=== PATIENT | female | born 1980 | race African-American/Black ===

== ENCOUNTER → 2019-11-25 | Outpatient (CLI) | payer BC, OTHER ==
--- NOTE | 2019-11-25 18:55 | RADIOLOGY REPORT (SQ) ---
EXAM DESCRIPTION: VENOUS UNILATERAL LOWER IMAGES COMPLETED DATE/TIME: 11/25/2019 6:23 pm REASON FOR STUDY: LLEV PAIN M79.609 PAIN IN UNSPECIFIED LIMB M79.89 OTHER SPECIFIED SOFT TISSUE DI SORDERS COMPARISON: None. TECHNIQUE: Dynamic and static le scale and color images acquired of the left leg venous system. Se lected spectral images acquired with additional compression and augmentation maneuvers. The contralat eral common femoral vein and saphenofemoral junction were also imaged. Images stored on PACS. LIMITATIONS: None. FINDINGS: COMMON FEMORAL: Normal phasicity, compression and augmentation. No visualized echogenic ma terial on le scale. No defects on color images. FEMORAL: Normal compression and augmentation. No visualized echogenic material on le scale. No defe cts on color images. POPLITEAL: Normal compression, augmentation. No visualized echogenic material on le scale. No defec ts on color images. CALF VESSELS: Normal compression, augmentation. No visualized echogenic material on le scale. No de fects on color images. GSV and SSV: Normal compression, augmentation. No visualized echogenic material on le scale. No def ects on color images. ANY DEEP VENOUS INSUFFICIENCY: Not evaluated. ANY EVIDENCE OF POPLITEAL CYST: No. OTHER: No other significant finding. CONTRALATERAL COMMON FEMORAL VEIN: Normal phasicity, compression and augmentation. No visualized echogenic material on le scale. No de fects on color images. IMPRESSION: 1. NO EVIDENCE OF DVT OR SVT IN THE LEFT LEG. COMMENT: 1. The results were discussed with the patient's provider on 11/25/2019 at 18:21 hours. TECHNICAL DOCUMENTATION: JOB ID: [id number] [employer]- All Rights Reserved Reading location - IP/workstation name: [email or web address]
== END ==
LOC: SP 17:48
PROVIDERS: ATTEND Internal Medicine
DX: M79.609 Pain in unspecified limb (principal); M79.89 Other specified soft tissue disorders
CPT/HCPCS: 93971